=== PATIENT | male | born 1995 | race Caucasian/White ===

== ENCOUNTER 2018-05-25 08:29 | Emergency (ER) | payer MEDICAID, SELFPAY ==
[2018-05-25 08:34] VITALS: BP 126/64; PULSE 110; RESP 16; TEMP 37.1; O2SAT 96
[2018-05-25] MEDS: Ibuprofen 600 MG TAB PO (09:08)
[2018-05-25] MEDS: Dexamethasone 10 MG/ML VIAL PO (09:08)
--- NOTE | 2018-05-25 09:10 | W.ED.GENAD ---
Discharge Plan Disposition Patient Disposition: HOME Condition: Stable Discharge Details Chief Complaint: Sorethroat Clinical Impression: Acute pharyngitis Primary Care Provider: Remigio Persaud ED Provider: Jennifer Kruse Home Meds and New Rx's Prescriptions: New amoxicillin 500 mg tablet 500 mg PO BID 10 Days Qty: 20 RF: 0 Continued sertraline 50 MG tablet 50 mg PO DAILY RF: 0 Discharge Instructions Instructions: Pharyngitis (ED), Strep Throat (ED) Additional Instructions: Alternate Tylenol and Motrin as needed and directed for pain. Drink plenty of fluids and follow a soft diet for the next few days. Gargle with salt water and use sore throat lozenges to help with pain as needed. Follow-up with your primary care doctor in 1 week for reevaluation. Return immediately to the emergency department any worsening or new concerning symptoms. Discharge Data Discharge Physician: Jennifer Kruse Medical Decision Making 22-year-old male presents with sore throat and body aches with difficulty swallowing for the past 2 days. Heart rate 110s, remainder vitals within normal limits. Patient appears nontoxic and able to speak in full sentences. Hot potato voice. No trismus, drooling or submandibular swelling. Rapid strep negative. Suspect patient either has strep pharyngitis with a false negative rapid strep result or mononucleosis. Will obtain a mono screen, give a dose of Decadron and Motrin. 0925 --mono screen negative. Suspect that patient has strep pharyngitis and will treat with antibiotics. Throat culture sent. Patient given 1 dose of amoxicillin here and prescription for home. He is instructed to drink plenty of fluids, alternate Tylenol and Motrin, follow-up with primary care doctor for reevaluation and to return here immediately with any worsening symptoms. Medical Records Medical records reviewed: Yes I reviewed the patient's medical records. Lab Data Lab results reviewed: Yes I reviewed the patient's lab results. 05/25/18 08:43 Pharynx Streptococcus Screen (RAMÓN) - Pending Laboratory Tests Range/Units 05/25/18 09:00 Monoscreen (Negative) Negative HPI General Mode of arrival: ambulatory. Date/Time Provider Initiated Documentation: 05/25/18 08:41. Limitations to Documentation: no limitations. Information obtained by: patient. HPI Narrative: Patient is a 22-year-old male presents with sore throat for the past 2 days. Patient also admits to body aches, fatigue and difficulty swallowing. He took Vicky-[place] and NyQuil last night. No medications this morning. He thinks he had a fever last night but he did not check his temperature. He denies runny nose or coughing. He denies recent known exposure to strep or mono. Related Data Home Medications Medication Instructions Recorded Confirmed sertraline 50 mg PO DAILY 04/10/17 05/25/18 amoxicillin 500 mg PO BID 10 Days #20 tab 05/25/18 Previous Rx's Medication Instructions Recorded amoxicillin 500 mg PO BID 10 Days #20 tab 05/25/18 Allergies Allergy/AdvReac Type Severity Reaction Status Date / Time No Known Allergies Allergy Unverified 05/25/18 08:45 General Stated Complaint: Sorethroat LAZ: 3 Review of Systems Review of Systems All systems reviewed & are unremarkable except as noted in HPI and below Constitutional Reports as per HPI, Reports body ache(s), Denies chills, Reports fatigue, Denies fever(s) and Reports poor appetite Eyes Denies blurry vision ENT Denies dizziness, Reports sore throat and Denies throat swelling Cardiovascular Denies chest pain and Denies dyspnea Respiratory Denies cough and Denies dyspnea Gastrointestinal Denies abdominal pain, Denies diarrhea and Denies vomiting Genitourinary Denies hematuria and Denies dysuria Musculoskeletal Denies back pain and Denies numbness Integumentary/Breasts Denies lesions and Denies rash Neurologic Denies dizziness, Denies focal weakness and Denies numbness Endocrine Reports fatigue Allergic/Immunologic Denies throat swelling [facility] Medical History Anxiety (Chronic) Surgical History No significant past surgical history (Acute) Social History Smoking/Tobacco Use Status: Never Substance use type: does not use Do you feel safe at home: Yes Do you feel safe in your relationship?: Yes Exam Const General: cooperative and healthy appearing Orientation: alert and awake HENMT Head: normal to inspection Ears: hearing grossly normal bilaterally, external ears normal and TM's normal bilaterally General nose exam: external nose normal Face and sinus: normal facial exam Mouth: oral mucosae normal Teeth and gingiva: dentition normal Throat: uvula midline, no peritonsillar masses and posterior oropharynx abnormal (foul smelling breath) edema, erythema and exudates Eyes General: appearance normal, both eyes and all related structures Eyelids: eyelids normal EOM: EOM intact bilaterally Neck Neck: normal visual inspection, no lymphadenopathy, no meningeal signs, supple and No submandibular swelling Chest Chest: normal inspection of the chest Resp Effort & Inspection: normal respiratory effort and able to speak in complete sentences Auscultation: clear to auscultation bilaterally Cardio Rate: regular rate Rhythm: regular rhythm GI Inspection: normal to inspection Palpation: soft, not firm, no guarding, no hepatosplenomegaly, no masses and nontender Auscultation: normal bowel sounds Skin General skin exam: no rashes or lesions noted Neuro General: alert and awake Cognition: normal cognition Speech: speech normal Gait: normal gait Motor: muscle tone normal throughout Sensory Exam: no sensory deficits noted Extrem General: normal to inspection, full ROM, normal capillary refill and no edema Psych Appearance: grossly normal Mental Status: mental status grossly normal Speech and Movement: speech and movement normal Affect: normal affect Thought Process: normal Course Vital Signs Temperature 98.8 F 05/25/18 08:34 Pulse 110 H 05/25/18 08:34 Respiratory Rate 16 05/25/18 08:34 Blood Pressure 126/64 05/25/18 08:34 Pulse Oximetry 96 05/25/18 08:34 Temperature 98.8 F 05/25/18 08:34 Temperature Source Temporal Artery Scan 05/25/18 08:34 Pulse 110 H 05/25/18 08:34 Respiratory Rate 16 05/25/18 08:34 Respiratory Effort Non-Labored 05/25/18 08:43 Blood Pressure 126/64 05/25/18 08:34 Blood Pressure Position Sitting 05/25/18 08:34 Pulse Oximetry 96 05/25/18 08:34 Oxygen Delivery Method Room Air 05/25/18 08:34 Oxygen Flow Rate 0 05/25/18 08:34 Pain Level 7 05/25/18 08:34 Lab/Test Results Lab/Test Results: 05/25/18 08:43 Pharynx Streptococcus Screen (RAMÓN) - Pending POC Strep Test-NISREEN(Rapid) Start: 05/25/18 08:42 Freq: .Rapid Strep Test Status: Active Protocol: Document 05/25/18 08:48 SGL (Rec: 05/25/18 08:49 SGL [id number]) Strep test-NISREEN(Rapid)-POC POC-Strep test-NISREEN (Rapid) Negative POC-Strep test-NISREEN (Rapid) Negative
--- NOTE | 2018-05-25 09:14 | ED.GENADUL_ITS ---
Discharge Plan Disposition Patient Disposition: HOME Condition: Stable Discharge Details Chief Complaint: Sorethroat Clinical Impression: Acute pharyngitis Primary Care Provider: Remigio Persaud ED Provider: Jennifer Kruse Home Meds and New Rx's Prescriptions: New amoxicillin 500 mg tablet 500 mg PO BID 10 Days Qty: 20 RF: 0 Continued sertraline 50 MG tablet 50 mg PO DAILY RF: 0 Discharge Instructions Instructions: Pharyngitis (ED), Strep Throat (ED) Additional Instructions: Alternate Tylenol and Motrin as needed and directed for pain. Drink plenty of fluids and follow a soft diet for the next few days. Gargle with salt water and use sore throat lozenges to help with pain as needed. Follow-up with your primary care doctor in 1 week for reevaluation. Return immediately to the emergency department any worsening or new concerning symptoms. Discharge Data Discharge Physician: Jennifer Kruse Medical Decision Making 22-year-old male presents with sore throat and body aches with difficulty swallowing for the past 2 days. Heart rate 110s, remainder vitals within normal limits. Patient appears nontoxic and able to speak in full sentences. Hot potato voice. No trismus, drooling or submandibular swelling. Rapid strep negative. Suspect patient either has strep pharyngitis with a false negative rapid strep result or mononucleosis. Will obtain a mono screen, give a dose of Decadron and Motrin. 0925 --mono screen negative. Suspect that patient has strep pharyngitis and will treat with antibiotics. Throat culture sent. Patient given 1 dose of amoxicillin here and prescription for home. He is instructed to drink plenty of fluids, alternate Tylenol and Motrin, follow-up with primary care doctor for reevaluation and to return here immediately with any worsening symptoms. Medical Records Medical records reviewed: Yes I reviewed the patient's medical records. Lab Data Lab results reviewed: Yes I reviewed the patient's lab results. 05/25/18 08:43 Pharynx Streptococcus Screen (RAMÓN) - Pending Laboratory Tests Range/Units 05/25/18 09:00 Monoscreen (Negative) Negative HPI General Mode of arrival: ambulatory . Date/Time Provider Initiated Documentation: 05/25/18 08:41 . Limitations to Documentation: no limitations . Information obtained by: patient . HPI Narrative: Patient is a 22-year-old male presents with sore throat for the past 2 days. Patient also admits to body aches, fatigue and difficulty swallowing. He took Vicky-[place] and NyQuil last night. No medications this morning. He thinks he had a fever last night but he did not check his temperature. He denies runny nose or coughing. He denies recent known exposure to strep or mono. Related Data Home Medications Medication Instructions Recorded Confirmed sertraline 50 mg PO DAILY 04/10/17 05/25/18 amoxicillin 500 mg PO BID 10 Days #20 tab 05/25/18 Previous Rx's Medication Instructions Recorded amoxicillin 500 mg PO BID 10 Days #20 tab 05/25/18 Allergies Allergy/AdvReac Type Severity Reaction Status Date / Time No Known Allergies Allergy Unverified 05/25/18 08:45 General Stated Complaint: Sorethroat LAZ: 3 Review of Systems Review of Systems All systems reviewed & are unremarkable except as noted in HPI and below Constitutional Reports as per HPI, Reports body ache(s), Denies chills, Reports fatigue, Denies fever(s) and Reports poor appetite Eyes Denies blurry vision ENT Denies dizziness, Reports sore throat and Denies throat swelling Cardiovascular Denies chest pain and Denies dyspnea Respiratory Denies cough and Denies dyspnea Gastrointestinal Denies abdominal pain, Denies diarrhea and Denies vomiting Genitourinary Denies hematuria and Denies dysuria Musculoskeletal Denies back pain and Denies numbness Integumentary/Breasts Denies lesions and Denies rash Neurologic Denies dizziness, Denies focal weakness and Denies numbness Endocrine Reports fatigue Allergic/Immunologic Denies throat swelling [facility] Medical History Anxiety (Chronic) Surgical History No significant past surgical history (Acute) Social History Smoking/Tobacco Use Status: Never Substance use type: does not use Do you feel safe at home: Yes Do you feel safe in your relationship?: Yes Exam Const General: cooperative and healthy appearing Orientation: alert and awake HENMT Head: normal to inspection Ears: hearing grossly normal bilaterally, external ears normal and TM's normal bilaterally General nose exam: external nose normal Face and sinus: normal facial exam Mouth: oral mucosae normal Teeth and gingiva: dentition normal Throat: uvula midline, no peritonsillar masses and posterior oropharynx abnormal (foul smelling breath) edema, erythema and exudates Eyes General: appearance normal, both eyes and all related structures Eyelids: eyelids normal EOM: EOM intact bilaterally Neck Neck: normal visual inspection, no lymphadenopathy, no meningeal signs, supple and No submandibular swelling Chest Chest: normal inspection of the chest Resp Effort & Inspection: normal respiratory effort and able to speak in complete sentences Auscultation: clear to auscultation bilaterally Cardio Rate: regular rate Rhythm: regular rhythm GI Inspection: normal to inspection Palpation: soft, not firm, no guarding, no hepatosplenomegaly, no masses and nontender Auscultation: normal bowel sounds Skin General skin exam: no rashes or lesions noted Neuro General: alert and awake Cognition: normal cognition Speech: speech normal Gait: normal gait Motor: muscle tone normal throughout Sensory Exam: no sensory deficits noted Extrem General: normal to inspection, full ROM, normal capillary refill and no edema Psych Appearance: grossly normal Mental Status: mental status grossly normal Speech and Movement: speech and movement normal Affect: normal affect Thought Process: normal Course Vital Signs Temperature 98.8 F 05/25/18 08:34 Pulse 110 H 05/25/18 08:34 Respiratory Rate 16 05/25/18 08:34 Blood Pressure 126/64 05/25/18 08:34 Pulse Oximetry 96 05/25/18 08:34 Temperature 98.8 F 05/25/18 08:34 Temperature Source Temporal Artery Scan 05/25/18 08:34 Pulse 110 H 05/25/18 08:34 Respiratory Rate 16 05/25/18 08:34 Respiratory Effort Non-Labored 05/25/18 08:43 Blood Pressure 126/64 05/25/18 08:34 Blood Pressure Position Sitting 05/25/18 08:34 Pulse Oximetry 96 05/25/18 08:34 Oxygen Delivery Method Room Air 05/25/18 08:34 Oxygen Flow Rate 0 05/25/18 08:34 Pain Level 7 05/25/18 08:34 Lab/Test Results Lab/Test Results: 05/25/18 08:43 Pharynx Streptococcus Screen (RAMÓN) - Pending POC Strep Test-NISREEN(Rapid) Start: 05/25/18 08:42 Freq: .Rapid Strep Test Status: Active Protocol: Document 05/25/18 08:48 SGL (Rec: 05/25/18 08:49 SGL [id number]) Strep test-NISREEN(Rapid)-POC POC-Strep test-NISREEN (Rapid) Negative POC-Strep test-NISREEN (Rapid) Negative
[2018-05-25 09:21] LABS: Mono Screening Negative (Negative)
[2018-05-25] MEDS: Amoxicillin 500 MG CAP PO (09:35)
[2018-05-25 09:37] VITALS: PULSE 92; RESP 15; O2SAT 96
== END 2018-05-25 09:38 | disposition home or self-care (01) ==
PROVIDERS: Emergency Provider Physician Assistant; PCP Family Medicine
DX: J02.0 Streptococcal pharyngitis (principal)
CPT/HCPCS: 36415; 87880; 99283; 86308; 87081; J1100

== ENCOUNTER 2018-06-02 09:34 | Emergency (ER) | payer MEDICAID, SELFPAY ==
[2018-06-02 09:36] VITALS: BP 156/101; PULSE 100; RESP 20; TEMP 36.8; O2SAT 96
--- NOTE | 2018-06-02 09:37 | W.ED.GENAD ---
Discharge Plan Disposition Patient Disposition: HOME Condition: Stable Discharge Details Chief Complaint: Sorethroat Clinical Impression: Pharyngitis Primary Care Provider: Remigio Persaud ED Provider: Reynaldo Weaver Home Meds and New Rx's Prescriptions: New amoxicillin 500 mg tablet 500 mg PO BID Qty: 20 RF: 0 No Action amoxicillin 500 mg tablet 500 mg PO BID 10 Days Qty: 20 RF: 0 sertraline 50 MG tablet 50 mg PO DAILY RF: 0 Discharge Instructions Instructions: Pharyngitis (ED) Additional Instructions: you can take 1000mg tylenol and 600mg ibuprofen every 6 hours for pain as needed if you still have discomfort next week see your primary care provider if you have inability to swallow liquids or difficulty breathing that is worsening return to the emergency department Medical Decision Making 22 yo who was tx'd for strep last week but states he only had 5 days worth of meds and finished thursday comes in with continued sore throat. 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 Will have him take full 10 day course of abx and advised f/u with pcp and return precautions given Differential Diagnosis viral vs strep pharyngitis HPI General Mode of arrival: ambulatory. Date/Time Provider Initiated Documentation: 06/02/18 09:36. Limitations to Documentation: no limitations. Information obtained by: patient. History of Present Illness 22 year old M presents to the emergency department with the chief complaint of sore throat, described as moderate, Quality is described as aching, and is localized to the mouth. Patient reports no radiation. Patient started experiencing this week(s) (1) and it has been constant. No relieving factors improve symptom(s), No exacerbating factors reported . Patient did receive the following treatments prior to arrival, none Related Data Home Medications Medication Instructions Recorded Confirmed sertraline 50 mg PO DAILY 04/10/17 06/02/18 amoxicillin 500 mg PO BID 10 Days #20 tab 05/25/18 06/02/18 amoxicillin 500 mg PO BID #20 tab 06/02/18 Previous Rx's Medication Instructions Recorded amoxicillin 500 mg PO BID 10 Days #20 tab 05/25/18 amoxicillin 500 mg PO BID #20 tab 06/02/18 Allergies Allergy/AdvReac Type Severity Reaction Status Date / Time No Known Allergies Allergy Unverified 06/02/18 09:38 General LAZ: 3 Review of Systems Review of Systems All systems reviewed & are unremarkable except as noted in HPI and below Cardiovascular Denies chest pain and Denies dyspnea Respiratory Denies cough and Denies dyspnea Gastrointestinal Denies abdominal pain, Denies nausea and Denies vomiting Genitourinary Denies dysuria Musculoskeletal Denies joint swelling Integumentary/Breasts Denies rash PFS Medical History Anxiety (Chronic) Surgical History No significant past surgical history (Acute) Social History Smoking/Tobacco Use Status: Never Alcohol Intake: current Alcohol Intake frequency: holidays/special occasions only Substance use type: does not use Do you feel safe at home: Yes Do you feel safe in your relationship?: Yes Exam Const General: no acute distress Orientation: alert HENMT Head: normal to inspection Ears: external ears normal General nose exam: external nose normal Mouth: moist mucous membranes Eyes General: appearance normal, both eyes and all related structures Neck Neck: normal visual inspection Resp Effort & Inspection: normal respiratory effort and able to speak in complete sentences Cardio Rate: regular rate Skin General skin exam: no rashes or lesions noted Neuro General: alert and oriented x3 Extrem General: normal to inspection Psych Mental Status: mental status grossly normal
[2018-06-02] MEDS: Dexamethasone 10 MG/ML VIAL PO (09:40)
--- NOTE | 2018-06-02 09:40 | ED.GENADUL_ITS ---
Discharge Plan Disposition Patient Disposition: HOME Condition: Stable Discharge Details Chief Complaint: Sorethroat Clinical Impression: Pharyngitis Primary Care Provider: Remigio Persaud ED Provider: Reynaldo Weaver Home Meds and New Rx's Prescriptions: New amoxicillin 500 mg tablet 500 mg PO BID Qty: 20 RF: 0 No Action amoxicillin 500 mg tablet 500 mg PO BID 10 Days Qty: 20 RF: 0 sertraline 50 MG tablet 50 mg PO DAILY RF: 0 Discharge Instructions Instructions: Pharyngitis (ED) Additional Instructions: you can take 1000mg tylenol and 600mg ibuprofen every 6 hours for pain as needed if you still have discomfort next week see your primary care provider if you have inability to swallow liquids or difficulty breathing that is worsening return to the emergency department Medical Decision Making 22 yo who was tx'd for strep last week but states he only had 5 days worth of meds and finished thursday comes in with continued sore throat. 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 Will have him take full 10 day course of abx and advised f/u with pcp and return precautions given Differential Diagnosis viral vs strep pharyngitis HPI General Mode of arrival: ambulatory . Date/Time Provider Initiated Documentation: 06/02/18 09:36 . Limitations to Documentation: no limitations . Information obtained by: patient . History of Present Illness 22 year old M presents to the emergency department with the chief complaint of sore throat, described as moderate, Quality is described as aching, and is localized to the mouth. Patient reports no radiation. Patient started experiencing this week(s) (1) and it has been constant. No relieving factors improve symptom(s), No exacerbating factors reported . Patient did receive the following treatments prior to arrival, none Related Data Home Medications Medication Instructions Recorded Confirmed sertraline 50 mg PO DAILY 04/10/17 06/02/18 amoxicillin 500 mg PO BID 10 Days #20 tab 05/25/18 06/02/18 amoxicillin 500 mg PO BID #20 tab 06/02/18 Previous Rx's Medication Instructions Recorded amoxicillin 500 mg PO BID 10 Days #20 tab 05/25/18 amoxicillin 500 mg PO BID #20 tab 06/02/18 Allergies Allergy/AdvReac Type Severity Reaction Status Date / Time No Known Allergies Allergy Unverified 06/02/18 09:38 General LAZ: 3 Review of Systems Review of Systems All systems reviewed & are unremarkable except as noted in HPI and below Cardiovascular Denies chest pain and Denies dyspnea Respiratory Denies cough and Denies dyspnea Gastrointestinal Denies abdominal pain, Denies nausea and Denies vomiting Genitourinary Denies dysuria Musculoskeletal Denies joint swelling Integumentary/Breasts Denies rash PFS Medical History Anxiety (Chronic) Surgical History No significant past surgical history (Acute) Social History Smoking/Tobacco Use Status: Never Alcohol Intake: current Alcohol Intake frequency: holidays/special occasions only Substance use type: does not use Do you feel safe at home: Yes Do you feel safe in your relationship?: Yes Exam Const General: no acute distress Orientation: alert HENMT Head: normal to inspection Ears: external ears normal General nose exam: external nose normal Mouth: moist mucous membranes Eyes General: appearance normal, both eyes and all related structures Neck Neck: normal visual inspection Resp Effort & Inspection: normal respiratory effort and able to speak in complete sentences Cardio Rate: regular rate Skin General skin exam: no rashes or lesions noted Neuro General: alert and oriented x3 Extrem General: normal to inspection Psych Mental Status: mental status grossly normal
[2018-06-02 16:42] VITALS: BP 156/101; PULSE 100; RESP 20; TEMP 36.8; O2SAT 96
== END 2018-06-02 09:43 | disposition home or self-care (01) ==
LOC: ER 09:44
PROVIDERS: Emergency Provider Emergency Medicine; PCP Family Medicine
DX: J02.9 Acute pharyngitis, unspecified (principal)
CPT/HCPCS: 99283; J1100

== ENCOUNTER 2018-06-20 15:50 | Emergency (ER) | payer MEDICAID, SELFPAY ==
[2018-06-20 16:02] VITALS: BP 161/83; PULSE 84; TEMP 37; O2SAT 94
[2018-06-20] MEDS: predniSONE 40 MG, predniSONE 10 MG 50 MG PO (16:31)
--- NOTE | 2018-06-20 16:31 | ED.GENADUL_ITS ---
Discharge Plan Disposition Patient Disposition: HOME Condition: Good Discharge Details Chief Complaint: Sorethroat Clinical Impression: Enlarged tonsils Primary Care Provider: Remigio Persaud ED Provider: Parish Ge Home Meds and New Rx's Prescriptions: New prednisone 50 MG tablet 50 mg PO DAILY Qty: 7 RF: 0 No Action sertraline 50 MG tablet 50 mg PO DAILY RF: 0 Discharge Instructions Instructions: Tonsillitis (ED) Additional Instructions: Please take the prednisone as directed. Please follow-up promptly with the ear nose throat doctor. Will be contacted with an appointment. If you notice any worsening of your symptoms, or any new symptoms such as vomiting, diarrhea, fever, chills, shortness of breath, difficulty swallowing, difficulty eating, chest pain, numbness, weakness, or fainting , please return immediately to the emergency department for reevaluation. Please follow up with your primary care provider as soon as possible for reassessment and reevaluation. As always, it was a pleasure participating in your medical care today. Referrals: Remigio Persaud [Primary Care Provider] - Medical Decision Making This is a very pleasant 22-year-old male with no significant past medical history who presents for evaluation of his tonsils. The patient was seen and assessed here 1-2 weeks ago, he was on a full course of antibiotics/amoxicillin. He received 2 doses of prednisone, one on his initial assessment and then a subsequent 1 5 days later. He had notable improvement of his tonsillar size with these doses. Following this he had complete resolution of his sore throat, and had no associated fever, chest pain, shortness of breath or chills. He did have one brief day of sore throat 3-4 days ago but this resolved completely on its own. Exam demonstrates nontender neck, no evidence of infection or fever. No tachycardia. Tonsils are enlarged, but have no associated erythema, exudate, or discharge. No evidence of peritonsillar abscess. Strep test is negative. No clinical tenderness. Signs and symptoms are consistent with tonsillar enlargement but no clinical evidence of abscess, infection, or airway compromise. Patient looks extremely stable. With no signs of infection I do not think antibiotics are indicated, however I do feel that a repeat dose of prolonged steroids are indicated with close ENT follow-up. We will give prednisone here and 7 days for home use. We will set up a referral with ENT. We discussed red flags which return. I have extensively reviewed the treatment plan and discharge instructions with the patient. I have addressed all patient concerns at this time. The patient was made aware of what symptoms to monitor for that would warrant a return to the emergency department. Discussed the plan with the patient, they demonstrate verbal understanding and agreement with our assessment and plan at this time. HPI General Date/Time Provider Initiated Documentation: 06/20/18 15:52 . HPI Narrative: This is a 22-year-old male with no significant past medical history who presents today for evaluation of enlarged tonsils. 2 weeks ago the patient came in for evaluation of tonsillitis, the showed evidence of enlarged tonsils and was strep positive. He had 5 days of amoxicillin, and 1 dose of steroids in the ED. He did not have enough antibiotics for the full 10-day course, he came back, got new prescription and a second dose of steroids, and then completed his amoxicillin for a full course. This was 1 week ago when he finished. Roughly 3-4 days after this which was 4 days ago at that time, he had reemergence of the sore throat but this is only for a single day. He also noticed at that time that his tonsils were enlarged. The pain went away without any medication or intervention, since then he has been pain-free, however he has noticed that his tonsils were slightly enlarged. He denies fever, chills, worsening sore throat, difficulty breathing, swallowing, or moving his neck. He denies any pain to speak of. He denies any other complaints. On his first visit he did have a Monospot which was sent and this was negative. He denies any other complaints at this time. No other modifying factors. Related Data Home Medications Medication Instructions Recorded Confirmed sertraline 50 mg PO DAILY 04/10/17 06/20/18 prednisone 50 mg PO DAILY #7 tab 06/20/18 Previous Rx's Medication Instructions Recorded prednisone 50 mg PO DAILY #7 tab 06/20/18 Allergies Allergy/AdvReac Type Severity Reaction Status Date / Time No Known Allergies Allergy Unverified 06/20/18 16:07 General Stated Complaint: Sorethroat LAZ: 4 Review of Systems Review of Systems All systems reviewed & are unremarkable except as noted in HPI and below PFSH Social History Smoking/Tobacco Use Status: Never Alcohol Intake: current Alcohol Intake frequency: holidays/special occasions o nly Substance use type: does not use Do you feel safe at home: Yes Do you feel safe in your relationship?: Yes Exam Narrative Exam Narrative: 1.Const: Well-nourished, Well-developed, appearing stated age 2.Eyes: PERRL, no conjunctival injection, and symmetrical lids. 3.ENT: Atraumatic external nose and ears. Moist MM. Neck: Symmetric, trachea midline, No thyromegaly. No erythema in the posterior oropharynx. Minimally enlarged uvula. Tonsils are also slightly enlarged, there is still 2-3 cm between the 2 tonsils. No evidence of exudate, erythema, redness. Palpation of the posterior oropharynx demonstrates no signs or symptoms concerning for a retropharyngeal or peritonsillar abscess. No evidence of airway compromise, he is able to control his secretions extremely well and normal. Patient demonstrates good movement of cervical neck. There is no nuchal rigidity, no nuchal tenderness. Patient is able to flex the neck without any difficulty or significant pain. Negative Kernig's and Brudzinski sign. 4.CVS: +S1/S2, No murmurs or gallops. Peripheral pulses 2+ and equal in all extremities. Brisk capillary refill in all extremities. 5.RESP: Unlabored respiratory effort. Clear to auscultation bilaterally. No wheezes rales or rhonchi 6.GI: Soft, Nontender/Nondistended, No hepatosplenomegaly. No guarding or rebound. 7.MSK: Normocephalic/Atraumatic, Extremities w/o deformity or ttp No cyanosis or clubbing, Normal movement of all extremities 8.Skin: Warm, Dry. No rashes or lesions. 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 Sensation grossly intact, no focal neurologi c deficits. 10.Psych: (AAO) x3. Appropriate mood and affect Course Vital Signs Temperature 37 C 06/20/18 16:02 Pulse 84 06/20/18 16:02 Blood Pressure 161/83 H 06/20/18 16:02 Pulse Oximetry 94 L 06/20/18 16:02 Temperature 37 C 06/20/18 16:02 Temperature Source Skin 06/20/18 16:02 Pulse 84 04/14/19 16:02 Respiratory Effort Non-Labored 06/20/18 16:08 Blood Pressure 161/83 H 06/20/18 16:02 Blood Pressure Position Sitting 06/20/18 16:02 Pulse Oximetry 94 L 06/20/18 16:02 Oxygen Delivery Method Room Air 06/20/18 16:02 Oxygen Flow Rate 0 06/20/18 16:02 Pain Level 0 06/20/18 16:02 Lab/Test Results Lab/Test Results: 06/20/18 16:10 Tonsil - Not Specified Streptococcus Screen (RAMÓN) - Pending POC Strep Test-NISREEN(Rapid) Start: 06/20/18 16:14 Freq: Status: Active Protocol: Document 06/20/18 16:19 (Rec: 06/20/18 16:19 [email or web address]) Strep test-NISREEN(Rapid)-POC POC-Strep test-NISREEN (Rapid) Negative POC-Strep test-NISREEN (Rapid) Negative
--- NOTE | 2018-06-21 10:05 | NUR.NOTE ---
Nursing Note: Faxed to ENT the referral and MD note for follow up. Georgia Rodriguez.
== END 2018-06-20 16:45 | disposition home or self-care (01) ==
PROVIDERS: Emergency Provider Student in an Organized Health Care Education/Training Program; PCP Family Medicine
DX: J35.1 Hypertrophy of tonsils (principal)
CPT/HCPCS: 87880; 99283; 87081; J7512

== ENCOUNTER 2018-07-13 12:49 | Outpatient (CLI) | payer MEDICAID, SELFPAY ==
[2018-07-13 13:22] LABS: Bilirubin Negative (Negative); Blood Negative (Negative); Clarity Clear; Glucose Negative (Negative); Ketones Negative (Negative); Leukocyte Esterase Negative (Negative); Nitrite Negative (Negative); Urobilinogen 0.2 EU/dL (Up TO 0.2); pH 8.5 (5-8)
[2018-07-13 14:09] LABS: Glucose 86 mg/dL (70-100)
== END 2018-07-13 13:09 ==
PROVIDERS: PCP Family Medicine; Visit Provider Otolaryngology Otolaryngology/Facial Plastic Surgery
DX: R63.4 Abnormal weight loss (principal); R68.2 Dry mouth, unspecified; R63.1 Polydipsia
CPT/HCPCS: 36415; 82947; 81003